=== PATIENT | female | born 1980 | race Caucasian/White ===

== ENCOUNTER 2017-12-26 09:54 | Emergency (ER) | payer OTHER ==
[~2017-12-26] VITALS: Ht 157.5 cm; Wt 66.0 kg
[~2017-12-26 09:54] MED LIST: ALBU0.0939; advil
[2017-12-26 10:12] VITALS: BP 106/58
[2017-12-26 10:47] LABS: BASOPHILS # (AUTO) 0.1 K/uL (0.00-0.22); BASOPHILS % (AUTO) 0.8 % (0.0-2.0); EOSINOPHILS # (AUTO) 0.1 K/uL (0-0.4); EOSINOPHILS % (AUTO) 0.9 % (0.0-4.0); HEMATOCRIT 31.4 % (36-48); HEMOGLOBIN 9.9 g/dL (12.0-16.0); LYMPHOCYTES # (AUTO) 1.7 K/uL (2.5-16.5); LYMPHOCYTES % (AUTO) 19.7 % (20.5-51.1); MEAN CORPUSCULAR HEMOGLOBIN 22 pg (27-31); MEAN CORPUSCULAR HGB CONC 32 g/dL (33-37); MEAN CORPUSCULAR VOLUME 70 fL (80-94); MONOCYTES # (AUTO) 0.6 K/uL (0.8-1.0); MONOCYTES % (AUTO) 6.4 % (1.7-9.3); NEUTROPHILS # (AUTO) 6.1 K/uL (1.8-7.7); NEUTROPHILS % (AUTO) 72.2 % (42.2-75.2); PLATELET COUNT (AUTO) 251 K/uL (140-450); RED BLOOD CELL COUNT(AUTO) 4.46 MIL/uL (4.20-5.40); RED CELL DISTRIBUTION WIDTH 14.1 % (11.6-13.7); WHITE BLOOD COUNT (AUTO) 8.6 K/uL (4.8-10.8)
[2017-12-26 11:04] LABS: CARBON DIOXIDE 26.5 mmol/L (21-32); CREATININE 0.6 mg/dL (0.6-1.3); POTASSIUM 3.5 mmol/L (3.5-5.1)
[2017-12-26 11:10] LABS: ALBUMIN 3.6 g/dL (3.4-5.0); TOTAL BILIRUBIN 0.3 mg/dL (0.0-1.0)
[2017-12-26 12:07] VITALS: BP 106/58
== END 2017-12-26 12:16 | disposition home or self-care (01) ==
LOC: MED 09:54
DX: N93.8 Other specified abnormal uterine and vaginal bleeding (principal); J45.909 Unspecified asthma, uncomplicated; Z79.899 Other long term (current) drug therapy; Z88.1 Allergy status to other antibiotic agents
CPT/HCPCS: 36415; 80053; 81002; 81025; 84702; 85025; 99284

== ENCOUNTER 2018-08-30 14:39 | Emergency (ER) | payer OTHER ==
[~2018-08-30] VITALS: Ht 157.5 cm; Wt 64.4 kg
[2018-08-30 14:46] VITALS: BP 113/55
--- NOTE | 2018-08-30 14:51 | NUR ---
PATIENT AMB TO LOBBY. VSS.
--- NOTE | 2018-08-30 15:42 | NUR ---
PT AMB TO BED 9
--- NOTE | 2018-08-30 15:48 | NUR ---
BIB SELF. PATIENT PRESENTS TO ED WITH VAGINAL BLEEDING x11 DAYS AND ABD CRAMPING . PT STATES SHE STARTED HER PERIOD LIKE NORMAL BUT IT NEVER STOPPED AND SHE IS PASSING LARGE "GOLFBALL SIZE" CLOTS. DENIES N/V/D; SKIN IS PINK/WARM/DRY; AAOX4 WITH EVEN AND STEADY GAIT; LUNGS CLEAR BL; HR EVEN AND REGULAR; PT DENIES ANY FEVER, CP, SOB, OR COUGH AT THIS TIME; PATIENT STATES PAIN OF 5/10 AT THIS TIME; VSS; PATIENT POSITIONED FOR COMFORT; HOB ELEVATED; BEDRAILS UP X2; BED DOWN. ER MD MADE AWARE OF PT STATUS.
[2018-08-30 17:05] LABS: APPEARANCE,URINE HAZY (CLEAR); COLOR,URINE STRAW (YELLOW)
[2018-08-30 17:06] LABS: BILIRUBIN,URINE NEGATIVE (NEGATIVE); BLOOD, URINE NEGATIVE (NEGATIVE); LEUKOCYTE ESTERASE ,URINE NEGATIVE (NEGATIVE); NITRITE, URINE NEGATIVE (NEGATIVE); PH,URINE 7.5 (5.0-9.0); UGLUCOSE NEGATIVE (NEGATIVE)
[2018-08-30 17:31] LABS: BASOPHILS # (AUTO) 0.1 K/uL (0.00-0.22); BASOPHILS % (AUTO) 1.2 % (0.0-2.0); EOSINOPHILS # (AUTO) 0.1 K/uL (0-0.4); EOSINOPHILS % (AUTO) 1.5 % (0.0-4.0); HEMATOCRIT 26.7 % (36-48); HEMOGLOBIN 8.1 g/dL (12.0-16.0); LYMPHOCYTES % (AUTO) 35.5 % (20.5-51.1); MEAN CORPUSCULAR HEMOGLOBIN 19 pg (27-31); MEAN CORPUSCULAR HGB CONC 30 g/dL (33-37); MEAN CORPUSCULAR VOLUME 63.6 fL (80-94); MONOCYTES # (AUTO) 0.6 K/uL (0.8-1.0); MONOCYTES % (AUTO) 10.1 % (1.7-9.3); NEUTROPHILS # (AUTO) 2.9 K/uL (1.8-7.7); NEUTROPHILS % (AUTO) 51.7 % (42.2-75.2); PLATELET COUNT (AUTO) 300 K/uL (140-450); RED CELL DISTRIBUTION WIDTH 17.3 % (11.6-13.7); WHITE BLOOD COUNT (AUTO) 5.7 K/uL (4.8-10.8)
[2018-08-30 17:47] LABS: PROTHROMBIN TIME 10.6 secs (10.8-13.4)
[2018-08-30] MEDS ORDERED: medroxyPROGESTERone 10 MG TAB PO SCH (19:20)
--- NOTE | 2018-08-30 19:25 | NUR ---
REPORT RECIEVED FROM CHRIS GREENWOOD
[2018-08-30 19:35] VITALS: BP 115/68
--- NOTE | 2018-08-30 19:36 | NUR ---
Patient discharged with v/s stable. Written and verbal after care instructions given and explained. Patient alert, oriented and verbalized understanding of instructions. Ambulatory with steady gait. All questions addressed prior to discharge. ID band removed. Patient advised to follow up with PMD. Rx of PROVERA, NAPROXEN, FERROUS SULFATE given. Patient educated on indication of medication including possible reaction and side effects. Opportunity to ask questions provided and answered.
== END 2018-08-30 19:35 | disposition home or self-care (01) ==
LOC: MED 14:39
DX: N93.8 Other specified abnormal uterine and vaginal bleeding (principal); J45.909 Unspecified asthma, uncomplicated; Z88.1 Allergy status to other antibiotic agents
CPT/HCPCS: 36415; 76830; 81003; 81025; 84702; 85025; 85610; 85730; 99285; J1050; Q0092

== ENCOUNTER 2018-09-10 12:36 | Emergency (ER) | payer OTHER ==
[~2018-09-10] VITALS: Ht 160 cm; Wt 63.5 kg
[2018-09-10 12:47] VITALS: BP 114/64
--- NOTE | 2018-09-10 12:54 | NUR ---
PT AMBULATED TO ER BED 02
--- NOTE | 2018-09-10 12:55 | NUR ---
37YO F BIB SELF W/C/O LOWER ABDOMINAL PAIN & VAGINAL BLEEDING X20 DAYS, 3-4 TAMPONS PER HR WITH CLOTS. CRAMPING, BLOATING, DIZZINESS. PT WAS SEEN AT [facility] X1WK AGO FOR SAME REASON WITH NO IMPROVMENT. DENIES N/V/D; SKIN IS PINK/WARM/DRY; AAOX4 WITH EVEN AND STEADY GAIT; LUNGS CLEAR BL;PATIENT STATES PAIN OF 5/10 AT THIS TIME; PATIENT POSITIONED FOR COMFORT; HOB ELEVATED; BEDRAILS UP X2; BED DOWN. ER MD MADE AWARE OF PT STATUS.
--- NOTE | 2018-09-10 13:04 | NUR ---
Patient being evaluated by DR WORRELL at bedside.
[2018-09-10] MEDS ORDERED: NACL 0.9% 1,000 ML IV SCH (13:33)
[2018-09-10 14:02] LABS: BASOPHILS # (AUTO) 0.1 K/uL (0.00-0.22); BASOPHILS % (AUTO) 1.2 % (0.0-2.0); EOSINOPHILS # (AUTO) 0.1 K/uL (0-0.4); HEMATOCRIT 27.4 % (36-48); HEMOGLOBIN 8.4 g/dL (12.0-16.0); LYMPHOCYTES # (AUTO) 1.4 K/uL (2.5-16.5); LYMPHOCYTES % (AUTO) 21.2 % (20.5-51.1); MEAN CORPUSCULAR HEMOGLOBIN 19 pg (27-31); MEAN CORPUSCULAR HGB CONC 31 g/dL (33-37); MEAN CORPUSCULAR VOLUME 62.9 fL (80-94); MONOCYTES # (AUTO) 0.8 K/uL (0.8-1.0); MONOCYTES % (AUTO) 11.7 % (1.7-9.3); NEUTROPHILS # (AUTO) 4.4 K/uL (1.8-7.7); NEUTROPHILS % (AUTO) 64.9 % (42.2-75.2); PLATELET COUNT (AUTO) 272 K/uL (140-450); RED BLOOD CELL COUNT(AUTO) 4.36 MIL/uL (4.20-5.40); RED CELL DISTRIBUTION WIDTH 16.9 % (11.6-13.7); WHITE BLOOD COUNT (AUTO) 6.8 K/uL (4.8-10.8)
[2018-09-10 14:07] LABS: APPEARANCE,URINE CLOUDY (CLEAR); COLOR,URINE BLOODY (YELLOW)
[2018-09-10 14:08] LABS: LEUKOCYTE ESTERASE ,URINE 1+ (NEGATIVE); NITRITE, URINE NEGATIVE (NEGATIVE)
[2018-09-10 14:09] LABS: BILIRUBIN,URINE NEGATIVE (NEGATIVE); BLOOD, URINE 4+ (NEGATIVE); UGLUCOSE NEGATIVE (NEGATIVE)
[2018-09-10 14:11] LABS: RBC,URINE TOO NUMEROUS TO COUN /HPF (0-5)
[2018-09-10 14:12] LABS: URINE AMORPHOUS URATE 2+ /HPF (None Seen)
[2018-09-10 14:25] LABS: CREATININE 0.7 mg/dL (0.6-1.3)
[2018-09-10 14:33] LABS: ALBUMIN 3.7 g/dL (3.4-5.0); TOTAL BILIRUBIN 0.4 mg/dL (0.0-1.0)
[2018-09-10 14:35] LABS: PROTHROMBIN TIME 10.1 secs (10.8-13.4)
--- NOTE | 2018-09-10 16:34 | NUR ---
PT REQUESTING TO SPEAK WITH PHYSICIAN BEFORE DISCHARGE, DR. WORRELL REFUSED AND STATED HE HAD NOTHING ELSE TO SAY. PT MADE AWARE. PT BECAME ANGRY, RIPPED OUT IV AND RAISED VOICE STATING "I NEED AN EXPLANATION". PT REFUSED TO SIGN DISCHARGE PAPERWORK. EDMD AWARE.
--- NOTE | 2018-09-10 16:35 | NUR ---
Patient discharged with v/s stable. Written and verbal after care instructions given and explained. Patient alert, oriented and verbalized understanding of instructions. Ambulatory with steady gait. All questions addressed prior to discharge. ID band removed. Patient advised to follow up with PMD. Rx of FERRALET given. Patient educated on indication of medication including possible reaction and side effects. Opportunity to ask questions provided and answered.
[2018-09-10 16:36] VITALS: BP 125/78
== END 2018-09-10 16:35 | disposition home or self-care (01) ==
LOC: MED 12:36
DX: D25.9 Leiomyoma of uterus, unspecified (principal); N83.202 Unspecified ovarian cyst, left side; D64.9 Anemia, unspecified; J45.909 Unspecified asthma, uncomplicated; Z88.1 Allergy status to other antibiotic agents; Z79.51 Long term (current) use of inhaled steroids
CPT/HCPCS: 36415; 76830; 80053; 81001; 81025; 84702; 85025; 85610; 85730; 86886; 86900; 86901; 87086; 96360; 96361; 99285; J7030; Q0092

== ENCOUNTER 2019-06-13 09:29 | Observation (INO) | payer OTHER ==
[~2019-06-13] VITALS: Ht 157.5 cm; Wt 68.0 kg
[2019-06-13 09:32] VITALS: BP 117/66
--- NOTE | 2019-06-13 09:36 | NUR ---
PATIENT AMBULATED TO BED 5 AT THIS TIME.
--- NOTE | 2019-06-13 09:40 | NUR ---
PT PRESENTS TO ED WITH C/O DIZZINESS FOR APPROX 2 WEEKS. DENIES ANY NAUSEA, VOMITING, DIARRHEA OR FEVER; AFEBRILE AT THIS TIME. PUPILS EQUAL AND REACTIVE TO LIGHT BILATERALLY. NO FACIAL DROOP NOTED. NO SMILE DEFICIT NOTED. PT IS ALERT AND ORIENTED TO PERSON, PLACE, TIME AND EVENT. BILATERAL HAND CREMATORY OPERATOR EQUAL. BILATERAL FOOT PUSH EQUAL. OBSERVED AMBULATING WITH STEADY GAIT. PLACED IN GOWN; CONNECTED TO PLUMBER HELPER. GURNEY LOCKED AND IN LOWEST POSITION. ERMD TO EVALUATE PT. Addendum: 06/13/19 at 1010 by MEDLE PT PRESENTS TO ED WITH C/O DIZZINESS FOR APPROX 2 WEEKS. +NAUSEA. DENIES ANY VOMITING, DIARRHEA OR FEVER; AFEBRILE AT THIS TIME. PUPILS EQUAL AND REACTIVE TO LIGHT BILATERALLY. NO FACIAL DROOP NOTED. NO SMILE DEFICIT NOTED. PT IS ALERT AND ORIENTED TO PERSON, PLACE, TIME AND EVENT. BILATERAL HAND CREMATORY OPERATOR EQUAL. BILATERAL FOOT PUSH EQUAL. OBSERVED AMBULATING WITH STEADY GAIT. PLACED IN GOWN; CONNECTED TO PLUMBER HELPER. GURNEY LOCKED AND IN LOWEST POSITION. ERMD TO EVALUATE PT.
[2019-06-13] MEDS ORDERED: MECLIZINE 25 MG TAB PO ONE (09:50)
--- NOTE | 2019-06-13 09:53 | NUR ---
PT TO CT VIA WHEELCHAIR.
--- NOTE | 2019-06-13 09:59 | NUR ---
PT BACK FROM CT TO BED 5
--- NOTE | 2019-06-13 10:00 | NUR ---
LAB AT BEDSIDE.
[2019-06-13 10:09] LABS: HEMOGLOBIN 7.7 g/dL (12.0-16.0); MEAN CORPUSCULAR HEMOGLOBIN 18 pg (27-31); MEAN CORPUSCULAR VOLUME 58.9 fL (80-94); PLATELET COUNT (AUTO) 280 K/uL (140-450); WHITE BLOOD COUNT (AUTO) 5.2 K/uL (4.8-10.8)
--- NOTE | 2019-06-13 10:09 | NUR ---
MEDICATION ADMINISTERED ORDERED BY MD. PT RESTING COMFORTABLY IN BED; VSS. WILL CONTINUE TO MONITOR CLOSELY.
[2019-06-13 10:20] LABS: HEMATOCRIT 25.4 % (36-48); MEAN CORPUSCULAR HGB CONC 30 g/dL (33-37); RED BLOOD CELL COUNT(AUTO) 4.31 MIL/uL (4.20-5.40); RED CELL DISTRIBUTION WIDTH 19.7 % (11.6-13.7)
[2019-06-13] MEDS ORDERED: NACL 0.9% 1,000 ML IV ONE (10:50)
[2019-06-13 10:56] LABS: EOSINOPHILS % (MANUAL) 2 % (0-4); LYMPHOCYTES % (MANUAL) 39 % (20-46); MONOCYTES % (MANUAL) 9 % (5-12)
[2019-06-13 10:57] LABS: BASOPHILS % (MANUAL) 0 % (0-2)
--- NOTE | 2019-06-13 11:12 | NUR ---
18G IV TO LT AC STARTED, PT TOLERATED PROCEDURE WELL; IVF RUNNING ORDERED BY MD.
[2019-06-13 11:20] LABS: PROTHROMBIN TIME 9.8 secs (10.8-13.4)
[2019-06-13 11:23] LABS: ALBUMIN 3.4 g/dL (3.4-5.0); ANION GAP 8.7 (8-16); CARBON DIOXIDE 29.9 mmol/L (21-32); CREATININE 0.6 mg/dL (0.6-1.3); POTASSIUM 3.6 mmol/L (3.5-5.1); TOTAL BILIRUBIN 0.2 mg/dL (0.0-1.0)
[2019-06-13] MEDS ORDERED: FLONAS NS (11:26)
[2019-06-13] MEDS ORDERED: MECLIZINE 25 MG TAB PO PRN (11:55)
[2019-06-13] MEDS ORDERED: ONDANSETRON 4 MG/2 ML VIAL IVP PRN (11:55)
[2019-06-13 12:15] VITALS: BP 109/69
--- NOTE | 2019-06-13 12:15 | NUR ---
RECEIVED REPORT FROM EMERGENCY ROOM NURSE FOR CONTINUITY OF CARE. PT IN STABLE CONDITION. RESPIRATIONS EVEN AND UNLABORED. IV INTACT AND PATENT. SAFETY MEASURES IN PLACE. BED IN LOW POSITION. CALL LIGHT AT BEDSIDE. WILL CONTINUE TO MONITOR.
--- NOTE | 2019-06-13 12:35 | NUR ---
Patient admitted to Telemetry Room 125B. Belongings list completed. Report to CHRIS Khan. Pt in stable condition; transfer of care at this time.
[2019-06-13] MEDS: NACL 0.9% 1,000 ML IV SCH (13:07)
[2019-06-13] MEDS ORDERED: ALBUTEROL SULFATE/IPRATROPIU 3 ML SOL IH PRN (13:40)
[2019-06-13] MEDS: SODIUM FERRIC GLUCONATE 125 MG in NACL 0.9% 100 ML IV SCH (14:01)
--- NOTE | 2019-06-13 14:01 | NUR ---
STARTED IV FERRIC GLUCONATE AT THIS TIME. WILL CONTINUE TO MONITOR.
[2019-06-13 16:00] VITALS: BP 110/71
--- NOTE | 2019-06-13 16:33 | NUR ---
PLACE NEW IV SITE AT THIS TIME. 22G RAC PT IN STABLE CONDITION.
--- NOTE | 2019-06-13 18:10 | NUR ---
PT LYING IN BED WATCHING TV AT THIS TIME. PT IN STABLE CONDITION. RESPIRATIONS EVEN AND UNLABORED. WILL CONTINUE TO MONITOR. BED IN LOW POSITION. CALL LIGHT AT BEDSIDE.
--- NOTE | 2019-06-13 19:19 | NUR ---
GAVE REPORT TO CHEMICAL PRODUCTION ENGINEER NURSE ADILIA FOR CONTINUITY OF CARE. PT IN STABLE CONDITION.
--- NOTE | 2019-06-13 19:19 | NUR ---
RECIEVED PT AAOX4 , NID , IV SITE INTACT AND PATENT , WITH MINIMAL DIZZINESS SHE SAID , PLAN OF CARE DISCUSSED AND AND VERBALIZE UNDERSTANDING , SIDERAILS UPX2 , CALL LIGHT WITHIN REACH , BED IN LOW POSITION , WILL CONT. TO MONITOR.
[2019-06-13 20:00] VITALS: BP 111/60
--- NOTE | 2019-06-13 20:25 | NUR ---
RECEIVED PATIENT ON ROOM AIR, PULSE OX SAT 99%. PATIENT DENIES ANY SOB. PRN HHN NOT INDICATED AT THIS TIME. NO ACUTE RESPIRATORY DISTRESS NOTED AT THIS TIME. WILL CONTINUE TO MONITOR.
--- NOTE | 2019-06-13 22:00 | NUR ---
MADE ROUNDS , RESP. EVEN AND UNLABORED , NO COMPLAIN MADE AT THIS TIME , CALL LIGHT WITHIN REACH , WILL CONT. TO MONITOR .
[2019-06-14] VITALS: BP 110/60
--- NOTE | 2019-06-14 | NUR ---
MADE ROUNDS , RESP. EVEN AND UNLABORED , NO COMPLAIN MADE AT THIS TIME , CALL LIGHT WITHIN REACH , WILL CONT. TO MONITOR.
--- NOTE | 2019-06-14 02:00 | NUR ---
MADE ROUNDS , RESP. EVEN AND UNLABORED , CALL LIGHT WITHIN REACH , WILL CONT. TO MONITOR.
[2019-06-14] MEDS: NACL 0.9% 1,000 ML IV SCH (02:28)
[2019-06-14 04:00] VITALS: BP 111/60
--- NOTE | 2019-06-14 04:00 | NUR ---
MADE ROUNDS ,RESP. EVEN AND UNLABORED , NO COMPLAIN MADE AT THIS TIME , CALL LIGHT WITHIN REACH , WILL CONT. TO MONITOR.
[2019-06-14 06:21] LABS: ANION GAP 11.8 (8-16); CARBON DIOXIDE 25.9 mmol/L (21-32); CREATININE 0.5 mg/dL (0.6-1.3); POTASSIUM 3.7 mmol/L (3.5-5.1); TOTAL BILIRUBIN 0.3 mg/dL (0.0-1.0)
[2019-06-14 06:36] LABS: BASOPHILS # (AUTO) 0.1 K/uL (0.00-0.22); BASOPHILS % (AUTO) 1.4 % (0.0-2.0); EOSINOPHILS # (AUTO) 0.3 K/uL (0-0.4); EOSINOPHILS % (AUTO) 4.4 % (0.0-4.0); HEMATOCRIT 25.6 % (36-48); HEMOGLOBIN 7.8 g/dL (12.0-16.0); LYMPHOCYTES # (AUTO) 1.7 K/uL (2.5-16.5); LYMPHOCYTES % (AUTO) 27.9 % (20.5-51.1); MEAN CORPUSCULAR HEMOGLOBIN 18 pg (27-31); MEAN CORPUSCULAR HGB CONC 31 g/dL (33-37); MEAN CORPUSCULAR VOLUME 59.2 fL (80-94); MONOCYTES # (AUTO) 0.6 K/uL (0.8-1.0); MONOCYTES % (AUTO) 9.6 % (1.7-9.3); NEUTROPHILS # (AUTO) 3.5 K/uL (1.8-7.7); NEUTROPHILS % (AUTO) 56.7 % (42.2-75.2); PLATELET COUNT (AUTO) 259 K/uL (140-450); RED BLOOD CELL COUNT(AUTO) 4.32 MIL/uL (4.20-5.40); RED CELL DISTRIBUTION WIDTH 19.3 % (11.6-13.7); WHITE BLOOD COUNT (AUTO) 6.2 K/uL (4.8-10.8)
--- NOTE | 2019-06-14 07:31 | NUR ---
RECEIVED REPORT FROM DIGITAL SALES DIRECTOR NURSE. NO S/S OF RESPIRATORY DISTRESS FROM PATIENT. WILL CONTINUE TO MONITOR.
--- NOTE | 2019-06-14 07:31 | NUR ---
ENDORSED TO AM SHIFT FOR CONTINUITY OF CARE WITH LATEST BP 111/60,STILL WITH SLIGHTLY DIZZINESS.
[2019-06-14 08:03] VITALS: BP 99/58
--- NOTE | 2019-06-14 08:27 | NUR ---
PATIENT HAS BEEN SCREENED AND CATEGORIZED LOW NUTRITION RISK. PATIENT WILL BE SEEN WITHIN 7 DAYS OF ADMISSION. 06/20/[address]
[2019-06-14] MEDS ORDERED: ACETAMINOPHEN 325 MG TAB PO PRN (09:25)
--- NOTE | 2019-06-14 10:00 | NUR ---
SPOKE TO DR MELTON TO REQUEST A TELEPHONE ORDER OF ACETAMINOPHEN D/T PATIENT COMPLAINING OF HEADACHE. ORDER WAS INPUTTED. WAS INFORMED BY DR MELTON THAT PATIENT WILL NOT BE GETTING SECOND DOSE OF IV IRON D/T IT BEING TOO CLOSE IN TIME TO THE PREVIOUS DOSE. INFORMED PATIENT TO SPEAK TO PRIMARY CARE PHYSICIAN ABOUT RECEIVING OUTPATIENT IV IRON THERAPY. PATIENT VERBALIZED UNDERSTANDING.
[2019-06-14 12:00] VITALS: BP 95/50
--- NOTE | 2019-06-14 12:00 | NUR ---
SPOKE TO DR MELTON ABOUT DISCHARGE OF PATIENT. HE STATED HE WILL PUT IN THE ORDER, DISCHARGE PAPERWORK TO FOLLOW.
[2019-06-14] MEDS: SODIUM FERRIC GLUCONATE 125 MG in NACL 0.9% 100 ML IV SCH (13:56)
--- NOTE | 2019-06-14 15:00 | NUR ---
PT'S IVF WAS STOPPED NOW.
--- NOTE | 2019-06-14 15:30 | NUR ---
PATIENT WAS DISCHARGED TO HOME
--- NOTE | 2019-06-14 15:30 | NUR ---
PATIENT WAS DISCHARGED TO HOME. DISCHARGE INSTRUCTION WAS GIVEN, PATIENT VERBALIZED UNDERSTANDING. IV LINE WAS REMOVED. PATIENT WAS ACCOMPANIED BY FAMILY MEMBER UPON DISCHARGE IN STABLE CONDITION.
== END 2019-06-14 15:30 | disposition home or self-care (01) ==
LOC: MED 09:29 → MMU 12:00
PROVIDERS: ADMIT Internal Medicine; ATTEND Internal Medicine
DX: D50.9 Iron deficiency anemia, unspecified (principal); N93.9 Abnormal uterine and vaginal bleeding, unspecified; R42 Dizziness and giddiness; J45.909 Unspecified asthma, uncomplicated; D25.9 Leiomyoma of uterus, unspecified; Z98.890 Other specified postprocedural states
CPT/HCPCS: 36415; 70450; 80053; 83540; 85025; 85610; 85730; 87081; 94760; 96361; 96365; 99285; G0378; J2916; J7030; J8597; J7620

== ENCOUNTER 2019-07-11 20:59 | Emergency (ER) | payer OTHER ==
[~2019-07-11] VITALS: Ht 157.5 cm; Wt 68.0 kg
[~2019-07-11 20:59] MED LIST changes: -ALBU0.0939; +FLONAS NS; -advil
[2019-07-11 21:13] VITALS: BP 123/71
--- NOTE | 2019-07-11 21:17 | NUR ---
PT AMBULATED TO BED 2.
--- NOTE | 2019-07-11 21:20 | NUR ---
38Y FEMALE, PRESENTED TO ED C/O WORSENING GEN. BODY WEAKNESS, DIZZINESS, HEADACHE, CALF PAIN, X1 MONTH. PT STATES BEING HOSPITALIZED 1 MONTH AGO AT [facility] FOR SIMILAR PROBLEM. 5/10 URIBE PAIN. +NAUSEA,-VOMITING, -BLURRED VISION. AAOX4, GCS 15, RR EVEN UNLABORED, ED MD DR CERNA MADE AWARE, WILL CONTINUE TO MONITOR CLOSELY, BED IN LOWEST POSITION, SIDERAILS UPX1. HS: ANEMIA
[2019-07-11 21:37] LABS: BASOPHILS # (AUTO) 0.1 K/uL (0.00-0.22); BASOPHILS % (AUTO) 1.2 % (0.0-2.0); EOSINOPHILS % (AUTO) 0.6 % (0.0-4.0); HEMATOCRIT 27.2 % (36-48); HEMOGLOBIN 8.4 g/dL (12.0-16.0); LYMPHOCYTES # (AUTO) 2.5 K/uL (2.5-16.5); LYMPHOCYTES % (AUTO) 34.5 % (20.5-51.1); MEAN CORPUSCULAR HEMOGLOBIN 19 pg (27-31); MEAN CORPUSCULAR HGB CONC 31 g/dL (33-37); MEAN CORPUSCULAR VOLUME 60.6 fL (80-94); MONOCYTES # (AUTO) 0.6 K/uL (0.8-1.0); NEUTROPHILS % (AUTO) 55.7 % (42.2-75.2); PLATELET COUNT (AUTO) 300 K/uL (140-450); RED BLOOD CELL COUNT(AUTO) 4.49 MIL/uL (4.20-5.40); RED CELL DISTRIBUTION WIDTH 20.3 % (11.6-13.7); WHITE BLOOD COUNT (AUTO) 7.1 K/uL (4.8-10.8)
[2019-07-11 21:46] LABS: ANION GAP 11.8 (8-16); CARBON DIOXIDE 27.5 mmol/L (21-32); CREATININE 0.7 mg/dL (0.6-1.3); POTASSIUM 3.3 mmol/L (3.5-5.1)
[2019-07-11] MEDS ORDERED: POTASSIUM CHLORIDE 10 MEQ TABER PO ONE (22:05)
[2019-07-11] MEDS ORDERED: KETOROLAC 60 MG/2 ML VIAL IM ONE (23:00)
--- NOTE | 2019-07-11 23:05 | NUR ---
PT IN BED RESTING WITH DAUGHTER AT BEDSIDE, PT STILL C/O HEADACHE 04/23, DR. CERNA MADE AWARE. WILL CONTINUE TO MONITOR CLOSELY.
[2019-07-11 23:22] VITALS: BP 116/68
--- NOTE | 2019-07-11 23:22 | NUR ---
Patient discharged with v/s stable. Written and verbal after care instructions given and explained. Patient alert, oriented and verbalized understanding of instructions. Ambulatory with steady gait. All questions addressed prior to discharge. ID band removed. Patient advised to follow up with PMD. Rx of ZOFRAN 8MG AND MOTRIN 600MG given. Patient educated on indication of medication including possible reaction and side effects. Opportunity to ask questions provided and answered.
== END 2019-07-11 23:22 | disposition home or self-care (01) ==
LOC: MED 20:59
DX: R51 Headache (principal); M79.18 Myalgia, other site; J45.909 Unspecified asthma, uncomplicated; Z98.890 Other specified postprocedural states; Z88.0 Allergy status to penicillin; Z79.899 Other long term (current) drug therapy
CPT/HCPCS: 36415; 71045; 80048; 81002; 81025; 85025; 93971; 96372; 99284; J1885; Q0092

== ENCOUNTER 2019-12-11 13:28 | Emergency (ER) | payer SELFPAY ==
[~2019-12-11] VITALS: Ht 160 cm; Wt 67.6 kg
[2019-12-11 13:39] VITALS: BP 114/69
--- NOTE | 2019-12-11 13:46 | NUR ---
Patient transferred to bed 8 via wheelchair by tech. RN evaluating patient at bedside.
--- NOTE | 2019-12-11 13:53 | NUR ---
DR. GARCIA AT BEDSIDE FOR EVALUATION.
[2019-12-11] MEDS ORDERED: NACL 0.9% 500 ML IV ONE (13:55)
--- NOTE | 2019-12-11 14:00 | NUR ---
38 Y/F PRESENTS TO ED FOR URIBE AND DIZZINESS X 1 WEEK. URIBE 7/10, PT C/O LIGHT SENSITIVITY WHICH WORSENS URIBE. PT C/O FATIGUE. DENIES CP/N/V/D OR URI SX. LUNGS CLEAR UPON AUSCULTATION. SYMMETRICAL BREATHING, NO DISTRESS NOTED. HX- ANEMIA ALLERGIES- AMOX RX- DENIES
[2019-12-11] MEDS ORDERED: KETOROLAC 30 MG/ML VIAL IVP ONE (14:35)
[2019-12-11 14:53] LABS: BASOPHILS # (AUTO) 0.1 K/uL (0.00-0.22); BASOPHILS % (AUTO) 0.9 % (0.0-2.0); EOSINOPHILS % (AUTO) 0.3 % (0.0-4.0); HEMATOCRIT 29.3 % (36-48); HEMOGLOBIN 8.7 g/dL (12.0-16.0); LYMPHOCYTES # (AUTO) 1.4 K/uL (2.5-16.5); LYMPHOCYTES % (AUTO) 19.9 % (20.5-51.1); MEAN CORPUSCULAR HEMOGLOBIN 18 pg (27-31); MEAN CORPUSCULAR HGB CONC 30 g/dL (33-37); MEAN CORPUSCULAR VOLUME 60.5 fL (80-94); MONOCYTES # (AUTO) 0.5 K/uL (0.8-1.0); MONOCYTES % (AUTO) 7.5 % (1.7-9.3); NEUTROPHILS # (AUTO) 5.1 K/uL (1.8-7.7); NEUTROPHILS % (AUTO) 71.4 % (42.2-75.2); PLATELET COUNT (AUTO) 331 K/uL (140-450); RED BLOOD CELL COUNT(AUTO) 4.85 MIL/uL (4.20-5.40); RED CELL DISTRIBUTION WIDTH 18.5 % (11.6-13.7); WHITE BLOOD COUNT (AUTO) 7.1 K/uL (4.8-10.8)
[2019-12-11] MEDS ORDERED: MECLIZINE 25 MG TAB PO ONE (15:10)
[2019-12-11 15:30] LABS: ANION GAP 12.3 (8-16); CARBON DIOXIDE 25.6 mmol/L (21-32); CREATININE 0.6 mg/dL (0.6-1.3); POTASSIUM 3.9 mmol/L (3.5-5.1); TOTAL BILIRUBIN 0.3 mg/dL (0.0-1.0)
[2019-12-11 15:31] LABS: ALBUMIN 3.6 g/dL (3.4-5.0)
--- NOTE | 2019-12-11 16:48 | NUR ---
HGC NEG, UA DONE.
--- NOTE | 2019-12-11 16:54 | NUR ---
Patient taken to CT scan via wheelchair by tech.
[2019-12-11 18:04] VITALS: BP 111/62
== END 2019-12-11 18:05 | disposition home or self-care (01) ==
LOC: MED 13:28
DX: R42 Dizziness and giddiness (principal); J45.909 Unspecified asthma, uncomplicated; D64.9 Anemia, unspecified; Z88.1 Allergy status to other antibiotic agents
CPT/HCPCS: 36415; 70450; 80053; 81002; 81025; 85025; 93005; 96374; 99284; J1885; J7030; J8597

== ENCOUNTER 2020-11-27 18:28 | Emergency (ER) | payer SELFPAY ==
[~2020-11-27] VITALS: Ht 157.5 cm; Wt 68.0 kg
[2020-11-27 18:42] VITALS: BP 142/90
--- NOTE | 2020-11-27 18:46 | NUR ---
TENT 1
--- NOTE | 2020-11-27 18:50 | NUR ---
C/O SORE THROAT, URIBE X 3 DAYS AND C/O COUGH, LOSS OF TASTE/SMELL X TODAY. PMH: ANEMIA
--- NOTE | 2020-11-27 19:30 | NUR ---
SEEN AND EXAMINED BY MALOU WITH ORDERS AND CARRIED OUT
[2020-11-27 19:40] VITALS: BP 142/90
--- NOTE | 2020-11-27 20:05 | NUR ---
SWAB DONE AND SENT TO LAB
--- NOTE | 2020-11-27 20:30 | NUR ---
RESULT BACK AND NOTED BY ERMD AND FOR D/C
--- NOTE | 2020-11-27 21:00 | NUR ---
Patient discharged with v/s stable. Written and verbal after care instructions given and explained. Patient alert, oriented and verbalized understanding of instructions. Ambulatory with steady gait. All questions addressed prior to discharge. ID band removed. Patient advised to follow up with PMD. Rx of SUDAFED, ALBUTEROL given. Patient educated on indication of medication including possible reaction and side effects. Opportunity to ask questions provided and answered.
== END 2020-11-27 21:00 | disposition home or self-care (01) ==
LOC: MED 18:28
DX: R51.9 Headache, unspecified (principal); R05 Cough; R09.81 Nasal congestion; Z20.828 Contact with and (suspected) exposure to other viral communicable diseases
CPT/HCPCS: 71045; 99284; U0003

== ENCOUNTER 2021-02-05 20:37 | Emergency (ER) | payer MEDICAID ==
[~2021-02-05] VITALS: Ht 157.5 cm; Wt 67.1 kg
[2021-02-05 20:46] VITALS: BP 117/62
--- NOTE | 2021-02-05 20:46 | NUR ---
TO BED AMBULATORY
[2021-02-05 21:24] LABS: BASOPHILS # (AUTO) 0.1 K/uL (0.00-0.22); BASOPHILS % (AUTO) 1.4 % (0.0-2.0); EOSINOPHILS # (AUTO) 0.1 K/uL (0-0.4); EOSINOPHILS % (AUTO) 1.4 % (0.0-4.0); HEMATOCRIT 30.5 % (36-48); HEMOGLOBIN 9.3 g/dL (12.0-16.0); LYMPHOCYTES # (AUTO) 2.2 K/uL (2.5-16.5); LYMPHOCYTES % (AUTO) 28.1 % (20.5-51.1); MEAN CORPUSCULAR HEMOGLOBIN 20 pg (27-31); MEAN CORPUSCULAR HGB CONC 31 g/dL (33-37); MEAN CORPUSCULAR VOLUME 65.1 fL (80-94); MONOCYTES # (AUTO) 0.7 K/uL (0.8-1.0); MONOCYTES % (AUTO) 9.4 % (1.7-9.3); NEUTROPHILS # (AUTO) 4.6 K/uL (1.8-7.7); NEUTROPHILS % (AUTO) 59.7 % (42.2-75.2); PLATELET COUNT (AUTO) 373 K/uL (140-450); RED BLOOD CELL COUNT(AUTO) 4.68 MIL/uL (4.20-5.40); RED CELL DISTRIBUTION WIDTH 16.9 % (11.6-13.7); WHITE BLOOD COUNT (AUTO) 7.6 K/uL (4.8-10.8)
[2021-02-05 21:28] LABS: APPEARANCE,URINE CLEAR (CLEAR); BILIRUBIN,URINE NEGATIVE (NEGATIVE); BLOOD, URINE 1+ (NEGATIVE); COLOR,URINE YELLOW (YELLOW); LEUKOCYTE ESTERASE ,URINE NEGATIVE (NEGATIVE); NITRITE, URINE NEGATIVE (NEGATIVE); UGLUCOSE NEGATIVE (NEGATIVE)
[2021-02-05 21:36] LABS: PROTHROMBIN TIME 9.7 secs (10.8-13.4)
[2021-02-05 21:37] LABS: RBC,URINE 0-5 /HPF (0-5)
--- NOTE | 2021-02-05 21:37 | NUR ---
ULTRASOUND AT BEDSIDE
[2021-02-05 21:39] LABS: ALBUMIN 3.5 g/dL (3.4-5.0); ANION GAP 12.7 (8-16); CARBON DIOXIDE 27.9 mmol/L (21-32); CREATININE 0.6 mg/dL (0.6-1.3); POTASSIUM 3.6 mmol/L (3.5-5.1); TOTAL BILIRUBIN 0.3 mg/dL (0.0-1.0)
--- NOTE | 2021-02-05 21:39 | NUR ---
40 Y/O F BIB SELF FROM HOME, PATIENT PRESENTS TO ED WITH LOWER ABD PAIN AND UNCONTROLLED VAGINAL BLEEDING WITH CLOTS . PT STATES IT STARTED 10 DAYS AGO ACCOMPANIED WITH FATIGUE AND NAUSEA. SKIN IS PINK/WARM/DRY; AAOX4 WITH EVEN AND STEADY GAIT; LUNGS CLEAR BL; HR EVEN AND REGULAR; PT DENIES ANY FEVER, CP, SOB, OR COUGH AT THIS TIME; PATIENT STATES PAIN OF 6/10 AT THIS TIME; VSS; PATIENT POSITIONED FOR COMFORT; HOB ELEVATED; BEDRAILS UP X2; BED DOWN. ER MD MADE AWARE OF PT STATUS. ALLERGY TO AMOXICILLIN. PMH: ANEMIA. LMP: 12/15/20
--- NOTE | 2021-02-05 21:40 | NUR ---
KALEN FROM LAB PICKED UP URINE SPECIMEN FROM [facility].
[2021-02-05] MEDS ORDERED: MEDR10TA PO (23:11)
[2021-02-05 23:18] VITALS: BP 117/62
--- NOTE | 2021-02-05 23:19 | NUR ---
Patient discharged with v/s stable. Written and verbal after care instructions given and explained. Patient alert, oriented and verbalized understanding of instructions. Ambulatory with steady gait. All questions addressed prior to discharge. ID band removed. Patient advised to follow up with PMD. Rx of PROVERA given. Patient educated on indication of medication including possible reaction and side effects. Opportunity to ask questions provided and answered.
== END 2021-02-05 23:18 | disposition home or self-care (01) ==
LOC: MED 20:37
DX: O46.8X1 Other antepartum hemorrhage, first trimester (principal); D64.9 Anemia, unspecified; D25.9 Leiomyoma of uterus, unspecified; Z88.0 Allergy status to penicillin
CPT/HCPCS: 36415; 76856; 80053; 81001; 81025; 84702; 85025; 85610; 86886; 86900; 86901; 87086; 99284

== ENCOUNTER 2022-10-18 09:34 | Emergency (ER) | payer SELFPAY ==
[~2022-10-18] VITALS: Ht 157.5 cm; Wt 68.5 kg
[~2022-10-18 09:34] MED LIST changes: +MEDR10TA PO
[2022-10-18 09:39] VITALS: BP 132/73
--- NOTE | 2022-10-18 09:45 | NUR ---
FLU AND B[place] SWABS COLLECTED
[2022-10-18] MEDS ORDERED: NIRM1TAB PO (12:17)
[2022-10-18] MEDS ORDERED: ALBU0.0912 IH (12:17)
[2022-10-18] MEDS ORDERED: PROM118S5 PO (12:17)
[2022-10-18 12:42] VITALS: BP 115/80
--- NOTE | 2022-10-18 12:43 | NUR ---
Patient discharged with v/s stable. Written and verbal after care instructions given and explained. Patient alert, oriented and verbalized understanding of instructions. Ambulatory with steady gait. All questions addressed prior to discharge. ID band removed. Patient advised to follow up with PMD. Rx of PAXLOVID given. Patient educated on indication of medication including possible reaction and side effects. Opportunity to ask questions provided and answered.
== END 2022-10-18 12:42 | disposition home or self-care (01) ==
LOC: MED 09:34
DX: U07.1 COVID-19 (principal); R03.0 Elevated blood-pressure reading, without diagnosis of hypertension
CPT/HCPCS: 99283

== ENCOUNTER 2022-11-11 04:27 | Emergency (ER) | payer MEDICAID ==
[~2022-11-11] VITALS: Ht 157.5 cm; Wt 67.1 kg
[~2022-11-11 04:27] MED LIST changes: +ALBU0.0912 IH; +NIRM1TAB PO; +PROM118S5 PO
[2022-11-11 04:35] VITALS: BP 110/60
--- NOTE | 2022-11-11 04:35 | NUR ---
TO BED AMBULATORY
[2022-11-11] MEDS ORDERED: ALBUTEROL 0.083% 2.5 MG/3 ML NEBU INH ONE ×2 (04:45→05:05)
--- NOTE | 2022-11-11 05:10 | NUR ---
RAD AT BEDSIDE
--- NOTE | 2022-11-11 05:14 | NUR ---
RT AT BEDSIDE
--- NOTE | 2022-11-11 05:30 | NUR ---
BLOOD COLLECTED AND WALKED TO LAB
[2022-11-11 05:38] LABS: BASOPHILS % (AUTO) 0.4 % (0.0-2.0); EOSINOPHILS # (AUTO) 0.1 K/uL (0-0.4); EOSINOPHILS % (AUTO) 0.8 % (0.0-4.0); HEMATOCRIT 39.4 % (36-48); HEMOGLOBIN 13.6 g/dL (12.0-16.0); LYMPHOCYTES % (AUTO) 21.5 % (20.5-51.1); MEAN CORPUSCULAR HEMOGLOBIN 30 pg (27-31); MEAN CORPUSCULAR HGB CONC 35 g/dL (33-37); MEAN CORPUSCULAR VOLUME 85.4 fL (80-94); MONOCYTES # (AUTO) 0.8 K/uL (0.8-1.0); MONOCYTES % (AUTO) 8.3 % (1.7-9.3); NEUTROPHILS # (AUTO) 6.3 K/uL (1.8-7.7); PLATELET COUNT (AUTO) 225 K/uL (140-450); RED BLOOD CELL COUNT(AUTO) 4.61 MIL/uL (4.20-5.40); RED CELL DISTRIBUTION WIDTH 13.4 % (11.6-13.7); WHITE BLOOD COUNT (AUTO) 9.1 K/uL (4.8-10.8)
[2022-11-11 06:12] LABS: ALBUMIN 3.3 g/dL (3.4-5.0); ANION GAP 13.2 (8-16); ASPARTATE AMINOTRANSFERASE 12 U/L (15-37); CARBON DIOXIDE 27.4 mmol/L (21-32); CHLORIDE 104 mmol/L (98-107); CREATININE 0.4 mg/dL (0.6-1.3); GFR ARICAN-AMERICAN 227 mL/min (>90); GLUCOSE 81 mg/dL (74-106); POTASSIUM 3.6 mmol/L (3.5-5.1); SODIUM SERUM 141 mmol/L (136-145); TOTAL BILIRUBIN 0.4 mg/dL (0.0-1.0); UREA NITROGEN, BLOOD 15 mg/dL (7-18)
[2022-11-11 06:17] VITALS: BP 107/50
[2022-11-11] MEDS ORDERED: CODE-107 PO (06:22)
[2022-11-11] MEDS ORDERED: MUC600 PO (06:22)
--- NOTE | 2022-11-11 06:32 | NUR ---
Patient being evaluated by physician at bedside.
--- NOTE | 2022-11-11 06:38 | NUR ---
Patient discharged with v/s stable. Written and verbal after care instructions given and explained. Patient alert, oriented and verbalized understanding of instructions. Ambulatory with steady gait. All questions addressed prior to discharge. ID band removed. Patient advised to follow up with PMD. Rx of GUAIFENESIN/CODEINE PHOSPHATE AND GUAIFENESIN given. Patient educated on indication of medication including possible reaction and side effects. Opportunity to ask questions provided and answered.
== END 2022-11-11 06:38 | disposition home or self-care (01) ==
LOC: MED 04:27
DX: J02.8 Acute pharyngitis due to other specified organisms (principal); R06.02 Shortness of breath
CPT/HCPCS: 36415; 71045; 80053; 81025; 84484; 85025; 85379; 87081; 93005; 94640; 99285; J7613; Q0092

== ENCOUNTER 2023-08-22 21:22 | Emergency (ER) | payer MEDICAID, OTHER ==
[~2023-08-22] VITALS: Ht 157.5 cm; Wt 67.6 kg
[~2023-08-22 21:22] MED LIST changes: +CODE-107 PO; +MUC600 PO
[2023-08-22 22:04] VITALS: BP 137/70; PULSE 77; RESP 18; TEMP 97.6; O2SAT 100
[2023-08-22] MEDS ORDERED: ALBUTEROL SULFATE/IPRATROPIU 3 ML SOL IH ONE (23:35)
[2023-08-22] MEDS ORDERED: predniSONE 20 MG TAB PO ONE (23:35)
[2023-08-22 23:46] VITALS: PULSE 70; RESP 14; O2SAT 97
[2023-08-22 23:55] VITALS: O2SAT 100
[2023-08-23] MEDS ORDERED: ALBU0.0912 IH (00:05)
[2023-08-23] MEDS ORDERED: PRED20TA5 PO (00:05)
== END 2023-08-23 00:12 | disposition home or self-care (01) ==
LOC: MED 21:22
DX: J45.901 Unspecified asthma with (acute) exacerbation (principal); Z88.1 Allergy status to other antibiotic agents; Z79.899 Other long term (current) drug therapy
CPT/HCPCS: 94640; 99283; J7512

== ENCOUNTER 2023-09-14 22:57 | Emergency (ER) | payer OTHER ==
[~2023-09-14] VITALS: Ht 157.5 cm; Wt 67.1 kg
[~2023-09-14 22:57] MED LIST changes: +PRED20TA5 PO
[2023-09-14 23:04] VITALS: BP 118/56; PULSE 94; RESP 16; TEMP 97.4; O2SAT 98
[2023-09-15] MEDS ORDERED: ALBUTEROL SULFATE/IPRATROPIU 3 ML SOL IH ONE (02:40)
[2023-09-15 02:51] VITALS: PULSE 65; RESP 16; O2SAT 98
[2023-09-15 04:06] VITALS: BP 118/56; PULSE 65; RESP 16; TEMP 97.4; O2SAT 98
== END 2023-09-15 04:06 | disposition home or self-care (01) ==
LOC: MED 22:57
DX: J45.909 Unspecified asthma, uncomplicated (principal); Z79.899 Other long term (current) drug therapy; Z88.0 Allergy status to penicillin
CPT/HCPCS: 94640; 99283

== ENCOUNTER 2024-05-01 | Emergency (ER) | payer OTHER ==
[~2024-05-01] VITALS: Ht 157.5 cm; Wt 68.0 kg
[2024-05-01 00:14] VITALS: BP 120/80; PULSE 68; RESP 18; TEMP 97.6; O2SAT 100
[2024-05-01] MEDS ORDERED: DEXAMETHASONE 10 MG/ML VIAL ONE (02:48)
[2024-05-01] MEDS ORDERED: FLONAS NS (02:50)
[2024-05-01] MEDS ORDERED: CETI-24 PO (02:50)
[2024-05-01] MEDS: DEXAMETHASONE 10 MG/ML VIAL IM ONE (02:51)
[2024-05-01 02:54] VITALS: BP 120/80; PULSE 70; RESP 18; TEMP 97.6; O2SAT 100
== END 2024-05-01 02:54 | disposition home or self-care (01) ==
LOC: MED
DX: J06.9 Acute upper respiratory infection, unspecified (principal); B97.89 Other viral agents as the cause of diseases classified elsewhere; J45.909 Unspecified asthma, uncomplicated; Z79.52 Long term (current) use of systemic steroids; Z79.899 Other long term (current) drug therapy; Z88.0 Allergy status to penicillin
CPT/HCPCS: 71045; 96372; 99283; J1100